=== PATIENT | male | born 1945 | race Caucasian/White ===

== ENCOUNTER → 2024-04-01 07:29 | Outpatient (CLI) | payer MEDICARE, SELFPAY ==
--- NOTE | 2024-04-01 07:34 | DI.NM.S_ITS ---
PROCEDURE: NM EXERCISE TREADMILL NON NUC COMPARISON: None. INDICATIONS: OVALLES FINDINGS: The patient exercised for 7 minutes and 51 seconds, reaching 10.1METs, MAL -33%. 91% of maximum predicted heart rate reached. Appropriate BP response to exercise. Frequent PVCs at rest. No angina and no diagnostic ST changes during exercise or recovery. IMPRESSION: Low risk, normal treadmill ECG only stress test from inducible ischemia standpoint with good exercise tolerance (MAL -33%). Dictated by: Gold Saeed MD on 04/02/2024 at 10:55 Approved by: Gold Saeed MD on 04/02/2024 at 10:56
== END ==
PROVIDERS: PCP Student in an Organized Health Care Education/Training Program; Referring Provider Student in an Organized Health Care Education/Training Program; Visit Provider Student in an Organized Health Care Education/Training Program
DX: R06.09 Other forms of dyspnea (principal)
CPT/HCPCS: 93017

== ENCOUNTER → 2024-06-24 08:50 | Outpatient (CLI) | payer MEDICARE, SELFPAY | LOC: RESP 08:50 | PROVIDERS: PCP Student in an Organized Health Care Education/Training Program; Referring Provider Student in an Organized Health Care Education/Training Program; Visit Provider Student in an Organized Health Care Education/Training Program | DX: R06.09 Other forms of dyspnea (principal); R94.2 Abnormal results of pulmonary function studies; Z23 Encounter for immunization | CPT/HCPCS: 94060; 94726; 94729 ==